=== PATIENT | female | born 1990 | race Caucasian/White ===

== ENCOUNTER → 2021-01-09 | Outpatient (CLI) | payer OTHER, SELFPAY ==
--- NOTE | 2021-01-09 | TONS_PTH ---
PATIENT: SHELLY ROWLAND LOC: [facility] U#:[id number] AGE/SX: 30/F ROOM: RE01/09/[address]: Dr. Albino Raman MD : 1990 BED: DIS: 01/09/2021 SPEC #: [id number] RECD: 01/09/21 15:06 STATUS: ARTIS MICHELLE #: [id number] LU: 01/09/21 00:[address]: Albino Raman DEPT: SURGICAL PATHOLOGY RECD BY: Ab Schreiber ENTERED: 01/10/21 08:58 SP TYPE: TONSILS OTHR DR: ARLEN Tissues: Tonsil, NOS Procedures: Surgery Specimen Level III HEADER OPERATION: Tonsillectomy and adenoidectomy PRE-OP DIAGNOSIS: Hypertrophy of tonsils, obstructive sleep apnea TISSUE SUBMITTED: Bilateral tonsils, pin on right MICROSCOPIC DIAGNOSIS Right and left tonsils, bilateral tonsillectomies: Benign lymphoid hyperplasia. Focal acute tonsillitis. Organisms consistent with actinomyces. AM:daisy 01/11/2021 MICROSCOPIC DESCRIPTION Slides are reviewed. GROSS DESCRIPTION Received is one container labeled with the patient's name and designated tonsils - pin on right are two tonsils that in aggregate weigh 10.2 gm. The right tonsil has a pin on it and measures 3.5 x 2 x 1.2 cm. The left tonsil measures 3.2 x 2.2 x 1 cm. Both tonsils are similar in appearance. The external surfaces are pink-plascencia, smooth, glistening and somewhat lobulated. Focally they are hemorrhagic, granular and bear cautery artifact. Serial cross sections through the tonsils reveal normal tonsillar architecture. Sections are submitted in two cassettes as follows: 1 - right tonsil, 2 - left tonsil. / AM:daisy 01/10/21 TC:2 CPT: 28251 x2
== END | disposition home or self-care (01) ==
PROVIDERS: Visit Provider Otolaryngology
DX: G47.33 Obstructive sleep apnea (adult) (pediatric) (principal); J35.1 Hypertrophy of tonsils
CPT/HCPCS: 88304

== ENCOUNTER 2024-01-10 12:34 | Inpatient (IN) | payer BC, SELFPAY ==
[2024-01-10] VITALS (36 sets, daily range): BP systolic 103–141; BP diastolic 53–79; PULSE 66–94; RESP 15–16; TEMP 36.4–37.7; O2SAT 87–100; BMI 33.2
--- NOTE | 2024-01-10 | PLAC_PTH ---
PATIENT: SHELLY ROWLAND LOC: [facility] U#:[id number] AGE/SX: 33/F ROOM: WP007 RE01/10/[address]: Dr. Veda Horne MD : 1990 BED: 1 DIS: 01/12/2024 SPEC #: [id number] RECD: 01/10/24 20:45 STATUS: ARTIS REZuri #: [id number] LU: 01/10/24 00:[address]: Veda Horne DEPT: SURGICAL PATHOLOGY RECD BY: Ernesto Shea ENTERED: 01/12/24 07:23 SP TYPE: PLACENTA OTHR DR: Dr. Griffin Nick MD Tissues: Placenta, NOS Procedures: Surgery Specimen Level V HEADER OPERATION: Vaginal delivery PRE-OP DIAGNOSIS: Placenta anomaly TISSUE SUBMITTED: Placenta MICROSCOPIC DIAGNOSIS Placenta: Placental disc - third trimester placenta with a succenturiate lobe (500 gm). - Focal area of infarction and calcification, succenturiate lobe (1.0 cm in greatest dimension). - Focal area of villous congestion. Membranes - no pathologic diagnosis. Umbilical cord - three blood vessels and no pathologic diagnosis. SJ: 01/14/2024 MICROSCOPIC DESCRIPTION Slides are reviewed. GROSS DESCRIPTION SPECIMEN: PLACENTA / CLINICAL INFORMATION: A. Weight: 3.255 kg B. Gestational Age: 39 weeks C. Sex: Male PLACENTAL WEIGHT (POST FIXATION): 500 gm PLACENTAL DIMENSIONS: Main lobe of placenta measures 19.0 x 17.0 x 3.0 cm. Succenturiate lobe measures 11.0 x 8.0 x 2.0cm. PLACENTAL SHAPE: Usual ovoid with a succenturiate lobe. PLACENTAL WEIGHT FOR GESTATIONAL AGE: Within 10-99th percentile MEMBRANES - Present A. Insertion: Marginal B. Site of rupture from edge: 6.0 cm from edge of placental disc C. Color of membrane: Plascencia-landers D. Abnormalities: None UMBILICAL CORD - Present A. Color: Plascencia-landers B. Insertion: Paracentral C. Length: 37.0 cm D. Diameter: 1.2 cm E. Number of vessels: Three F. Abnormalities: A false knot is noted. PLACENTAL DISC - Present A. Color of surface: Plascencia-landers B. surface abnormalities: None C. Maternal cotyledons: Intact with minimal tears D. Attached retro placental clot: No clot E. Cut surface: Dark red and spongy F. Lesions: Sections of succenturiate lobe reveal a plascencia indurated lesion measuring 1.0cm in greatest dimension. G. Separate clot: Absent SECTIONS SUBMITTED: 6 cassettes 1. Membrane roll 2. Cord, maternal end and area of false knot 3. Cord, end and succenturiate lobe with plascencia indurated lesion 4. Placental disc, and maternal surfaces 5. Placental disc, and maternal surfaces 6. Placental disc, and maternal surfaces SJ/mr 01/13/2024TC:5 CPT: 79516
[2024-01-10] MEDS: fentaNYL-bupivacaine (epidural) 100 ML BAG EPIDURAL (13:00)
[2024-01-10] MEDS: Lactated Ringers 1,000 ML 999 ML IV (13:00)
[2024-01-10 13:46] LABS: Syphilis Antibodies Non-reactive
[2024-01-10 13:48] LABS: Absolute Lymphocyte Count 2.82 X10^3/uL (0.83-4.51); Absolute Neutrophil Count 10.7 X10^3/uL (2.0-7.7); Basophil# 0.12 X10^3/uL; Basophil% 0.8 % (0-1); Eosinophil# 0.25 X10^3/uL; Eosinophils% 1.7 % (0-5); Hematocrit 36.7 % (37-47); Hemoglobin 12.6 g/dL (12.0-15.0); Lymphocyte # 2.82 X10^3/ul (0.83-4.51); Lymphocyte % 18.7 % (19-41); Mean Corp Hgb Conc 34.3 g/dL (32-36); Mean Corpuscular Hgb 29.7 pg (27.0-32.0); Mean Corpuscular Volume 86.6 fL (81-99); Mean Platelet Vol. 11.8 fl (6.2-12.0); Monocyte# 0.86 X10^3/uL; Monocyte% 5.7 % (0-10); NRBC Flagged by Analyzer 0 % (0-5); Neutrophil # 10.65 X10^3/uL (2.7-7.7); Neutrophil % 70.4 % (47-70); Platelet Count 174 K/mm3 (150-450); RBC Distribution Width CV 12.8 % (11.6-14.6); RBC Distribution Width SD 39.6 fl (35.1-43.9); Red Blood Count 4.24 M/mm3 (4.2-5.4); White Blood Count 15.1 K/mm3 (4.4-11.0)
[2024-01-10] MEDS: Lactated Ringers 1,000 ML 150 ML IV (14:24)
[2024-01-10] MEDS: Oxytocin 15 Units/NS 250ml 15 UNITS/250 ML IV.SOLN 2 UNITS IV (17:03)
[2024-01-10] MEDS: Oxytocin 15 Units/NS 250ml 15 UNITS/250 ML IV.SOLN 334 UNITS IV (19:11)
--- NOTE | 2024-01-10 19:32 | PCM.HP.OB ---
HPI - General General Date of Admission: 01/10/24 Date of Service: 01/10/24 Chief Complaint: SROM HPI Narrative SHELLY ROWLAND, is a 33 F who presents with SROM this AM. Increasing contractions. GBS negative Maternal Data Information Final ARI: 01/13/24 Gestational age: 39+4 PFSH PFSH Home Medications ?Medication ?Instructions ?Recorded ?Last Taken ?Type aspirin 81 mg chewable tablet 1 tab PO DAILY 01/10/24 01/09/24 History vit no.95-ferrous 1 tab PO DAILY 01/10/24 01/09/24 History fumarate 28 mg-folic acid 800 mcg tablet () Allergy/AdvReac Type Severity Reaction Status Date / Time strawberry Allergy Food Verified 01/10/24 13:35 Allergy bupropion (From Wellbutrin AdvReac Other Verified 01/10/24 13:35 SR) buspirone (From BuSpar) AdvReac Other Verified 01/10/24 13:35 paroxetine (From Paxil) AdvReac Other Verified 01/10/24 13:35 Social History Smoking Status: Never smoker History 1 Elective abortions Hx Para 0 Spontaneous abortions Hx # Term Pregnancies Ectopic pregnancies Hx # Pregnancies Multiple births # of living children NST FHR Rate Baby A Baseline: 140 Variability:: Moderate Accelerations:: 15 x 15 Decelerations:: None NST Reactive:: Yes FHR Category:: Category I Uterine Activity:: q 3 ROS Constitutional Constitutional: Denies fatigue, fever(s) or malaise Eyes Eyes: Denies change in vision ENT HEENT: Denies dizziness or headache(s) Cardiovascular Cardiovascular: Denies chest pain, dyspnea or lightheadedness Respiratory/Chest Respiratory/Chest: Denies cough or dyspnea Gastrointestinal Gastrointestinal: Denies change in bowel habits Genitourinary Genitourinary: Denies burning urination or genital lesions Integumentary Integumentary: Denies rash Neurologic Neurologic: Denies confusion, dizziness, headache(s), numbness or weakness Vital Signs Vital Signs Vital Signs: 01/10/24 12:11 01/10/24 12:11 01/10/24 12:11 Temperature Temperature Source Pulse Rate 75 Respiratory Rate Blood Pressure 125/79 H BP Systolic 125 BP Diastolic 79 Pulse Ox 98 07/06/24 12:11 01/10/24 12:11 01/10/24 12:11 Temperature Temperature Source Tympanic Pulse Rate Respiratory Rate 15 Blood Pressure BP Systolic BP Diastolic Pulse Ox 99 01/10/24 12:11 01/10/24 13:03 01/10/24 13:03 Temperature 97.5 F L Temperature Source Pulse Rate 70 Respiratory Rate Blood Pressure 122/70 H BP Systolic 122 BP Diastolic 70 Pulse Ox 01/10/24 13:04 01/10/24 13:04 01/10/24 14:37 Temperature Temperature Source Pulse Rate 73 Respiratory Rate 16 Blood Pressure BP Systolic BP Diastolic Pulse Ox 94 01/10/24 14:40 01/10/24 14:40 01/10/24 14:40 Temperature Temperature Source Pulse Rate 72 Respiratory Rate Blood Pressure 127/76 H BP Systolic 127 BP Diastolic 76 Pulse Ox 99 01/10/24 14:42 01/10/24 14:45 01/10/24 14:45 Temperature Temperature Source Pulse Rate 69 Respiratory Rate 16 Blood Pressure BP Systolic BP Diastolic Pulse Ox 99 01/10/24 14:45 01/10/24 14:47 01/10/24 14:47 Temperature Temperature Source Pulse Rate 73 Respiratory Rate 16 Blood Pressure 125/70 H BP Systolic 125 BP Diastolic 70 Pulse Ox 01/10/24 14:50 01/10/24 14:50 01/10/24 14:54 Temperature Temperature Source Pulse Rate 71 Respiratory Rate Blood Pressure 131/66 H BP Systolic 131 BP Diastolic 66 Pulse Ox 100 01/10/24 14:54 01/10/24 14:55 01/10/24 14:55 Temperature Temperature Source Pulse Rate 78 76 Respiratory Rate Blood Pressure BP Systolic BP Diastolic Pulse Ox 99 01/10/24 14:59 01/10/24 14:59 01/10/24 15:00 Temperature Temperature Source Pulse Rate 74 78 Respiratory Rate Blood Pressure 124/62 H BP Systolic 124 BP Diastolic 62 Pulse Ox 01/10/24 15:00 01/10/24 15:04 01/10/24 15:04 Temperature Temperature Source Pulse Rate 76 Respiratory Rate Blood Pressure BP Systolic BP Diastolic Pulse Ox 97 87 01/10/24 15:05 01/10/24 15:05 01/10/24 15:05 Temperature Temperature Source Pulse Rate 82 Respiratory Rate Blood Pressure 120/64 BP Systolic 120 BP Diastolic 64 Pulse Ox 95 01/10/24 15:09 01/10/24 15:09 01/10/24 15:09 Temperature Temperature Source Pulse Rate 76 Respiratory Rate Blood Pressure 122/60 H BP Systolic 122 BP Diastolic 60 Pulse Ox 89 01/10/24 15:09 01/10/24 15:10 01/10/24 15:10 Temperature Temperature Source Pulse Rate 81 Respiratory Rate 16 Blood Pressure BP Systolic BP Diastolic Pulse Ox 94 01/10/24 15:15 01/10/24 15:15 01/10/24 15:20 Temperature Temperature Source Pulse Rate 79 76 Respiratory Rate Blood Pressure BP Systolic BP Diastolic Pulse Ox 100 01/10/24 15:20 01/10/24 15:40 01/10/24 15:40 Temperature Temperature Source Pulse Rate 70 Respiratory Rate Blood Pressure 106/56 L BP Systolic 106 BP Diastolic 56 Pulse Ox 100 01/10/24 16:11 01/10/24 16:11 01/10/24 16:40 Temperature Temperature Source Pulse Rate 73 Respiratory Rate Blood Pressure 117/57 L 108/58 L BP Systolic 117 108 BP Diastolic 57 58 Pulse Ox 01/10/24 16:40 01/10/24 17:04 01/10/24 17:04 Temperature Temperature Source Pulse Rate 77 73 Respiratory Rate Blood Pressure 107/55 L BP Systolic 107 BP Diastolic 55 Pulse Ox 01/10/24 17:10 01/10/24 17:10 01/10/24 17:25 Temperature Temperature Source Pulse Rate 75 Respiratory Rate Blood Pressure 103/53 L 112/60 BP Systolic 103 112 BP Diastolic 53 60 Pulse Ox 01/10/24 17:25 01/10/24 17:40 01/10/24 17:40 Temperature Temperature Source Pulse Rate 66 69 Respiratory Rate Blood Pressure 116/65 BP Systolic 116 BP Diastolic 65 Pulse Ox 01/10/24 18:10 01/10/24 18:10 01/10/24 18:40 Temperature Temperature Source Pulse Rate 78 Respiratory Rate Blood Pressure 113/61 119/73 BP Systolic 113 119 BP Diastolic 61 73 Pulse Ox 01/10/24 18:40 01/10/24 19:16 01/10/24 19:16 Temperature Temperature Source Pulse Rate 82 94 Respiratory Rate Blood Pressure 124/59 H BP Systolic 124 BP Diastolic 59 Pulse Ox 01/10/24 19:29 01/10/24 19:29 Temperature Temperature Source Pulse Rate 90 Respiratory Rate Blood Pressure 118/68 BP Systolic 118 BP Diastolic 68 Pulse Ox Weight Weight: 93.44 kg Body Mass Index (BMI) 33.2 Physical Exam Const alert and no apparent distress General Appearance: cooperative HEENT normocephalic Resp normal respiratory effort GI soft to palpation GI Narrative: gravid, nontender, appropriate for gestational age Extremity no calf tenderness General Extremity: edema Skin no wounds Rashes: No rashes noted Psych activity/motor behavior normal Labs Labs Labs: Blood Type O NEGATIVE Antibody Screen NEGATIVE Hct 36.7 % (37-47) L Hgb 12.6 g/dL (12.0-15.0) Syphilis Total Ab Non-reactive Assessment & Plan (1) SROM (spontaneous rupture of membranes): (2) 39 weeks gestation of : PLAN: Plan augmentation of labor. GBS negative Epidural prn
--- NOTE | 2024-01-10 19:36 | EX.PCM.OBRPT ---
Assessment & Plan (1) (spontaneous vaginal delivery): (2) 39 weeks gestation of : (3) SROM (spontaneous rupture of membranes): Maternal Data Information Final ARI: 01/13/24 Gestational age: 39+4 Vaginal Delivery Maternal Presentation Maternal Presentation: Spontaneous Rupture of Membranes Operative Information Date of Procedure: 01/10/24 Pre-Operative Diagnosis: SROM Post-Operative Diagnosis: Surgery / Procedure Performed: Spontaneous Vaginal Delivery Type of Anesthesia: Epidural Drain: Mendoza to straight drain Estimated Blood Loss: 100 cc Time of Delivery: 19:07 Findings Description of Procedure: Presented with SROM. Increased contractions frequency. Epidural placed. Pitocin augmentation with quick progressed to complete and pushed for 20 minutes delivering OA. The shoulders delivered easily. He cried upon delivery. The was placed on the maternal abdomen. The cord was clamped and cut. Cord blood was collected. The placenta delivered with gentle traction. There is an accessory lobe noted. A 1 st degree laceration was repaired with 2-0 Vicryl Rapide Presentation: Vertex and CADE Amniotic Membrane Rupture Type: Spontaneous Time of Membrane Rupture: 10 am Amniotic Fluid Description: Clear Placental Delivery Description: Spontaneous Placenta Disposition: [facility] Cord Vessel Description: 3 Vessels Cord Entanglement: None A Gender: Male (1 minute): 8 (5 minute): 9 Post Vaginal Delivery Medications Given After Delivery: IV Pitocin Episiotomy Description: None Laceration: Midline and 1st degree Complication Complications: None
[2024-01-10] MEDS: Oxytocin 15 Units/NS 250ml 15 UNITS/250 ML IV.SOLN 83 UNITS IV (19:45)
[2024-01-10 21:00] LABS: Pathology Specimen OB SEE PATHOLOGY REPORT
[2024-01-11 00:27] VITALS: BP 114/65; PULSE 86; RESP 16; TEMP 36.3; O2SAT 100
--- NOTE | 2024-01-11 01:23 | NURSING ---
Nick Thornton RN took over pt care at 0100
[2024-01-11 03:15] VITALS: BP 125/62; PULSE 81; RESP 16; TEMP 36.3
[2024-01-11] MEDS: Acetaminophen 500 MG Tablet 1000 MG PO ×3 (03:16→20:31)
[2024-01-11] MEDS: Rho(D) Immune Globulin 300 MCG (1500 Unit) Syringe IV (06:18)
[2024-01-11] MEDS: 0.9% Saline Lock 10 ML Syringe IV (06:19)
[2024-01-11 08:45] VITALS: BP 108/68; PULSE 72; RESP 16; TEMP 36.7; O2SAT 98
[2024-01-11] MEDS: Ibuprofen 600 MG Tablet PO ×3 (08:50→23:18)
--- NOTE | 2024-01-11 08:57 | PCM.PN.OB ---
Subjective Subjective Feeling good. Ambulating and voiding without difficulty. Pain controlled. Lochia moderate Objective Data Objective Data Vital Signs: Vital Signs Temp Pulse Resp BP Pulse Ox O2 Del Method 97.3 F L 81 16 125/62 H 100 Room Air 01/11/24 03:15 01/11/24 03:15 01/11/24 03:15 01/11/24 03:15 01/11/24 00:27 01/11/24 00:27 Oxygen Delivery Method Room Air Weight: 93.44 kg Body Mass Index (BMI) 33.2 Intake & Output: Intake and Output for Last 24 Hours 01/09/24 01/10/24 01/11/24 23:59 23:59 23:59 Intake Total 2151.2 / 2151.2 0 / 0 Output Total 100 / 100 1300 / 1300 Balance 2051.2 / 2051.2 -1300 / -1300 Lab / Micro Data 01/10/24 13:00 Labs: Laboratory Results - last 24 hr 01/10/24 13:00: WBC 15.1 H, RBC 4.24, Hgb 12.6, Hct 36.7 L, MCV 86.6, MCH 29.7, MCHC 34.3, RDW Std Deviation 39.6, RDW Coeff of Alondra 12.8, Plt Count 174, MPV 11.8, Immature Gran % (Auto) 2.700 H, Neut % (Auto) 70.4 H, Lymph % (Auto) 18.7 L, [place] % (Auto) 5.7, Eos % (Auto) 1.7, Baso % (Auto) 0.8, Absolute Neuts (auto) 10.7 H, Absolute Lymphs (auto) 2.82, Nucleated RBC % 0, Syphilis Total Ab Non-reactive, Blood Type O NEGATIVE, Antibody Screen NEGATIVE 01/11/24 00:20: Screen NEGATIVE, Baby's Blood Type A POSITIVE, Baby's BELLE NEGATIVE Physical Exam Const alert and no apparent distress Narrative: Fundus firm, below umbilicus. Assessment & Plan (1) (spontaneous vaginal delivery):
[2024-01-11 12:24] VITALS: BP 113/77; PULSE 68; RESP 16; TEMP 36.3; O2SAT 99
[2024-01-11 16:00] VITALS: BP 112/68; PULSE 72; RESP 14; TEMP 36.6; O2SAT 98
[2024-01-11 20:20] VITALS: BP 121/73; PULSE 66; RESP 16; TEMP 37.5; O2SAT 98
[2024-01-11] MEDS: Senna/Docusate Sodium 1 Tablet PO (20:31)
[2024-01-12 02:45] VITALS: BP 117/68; PULSE 62; RESP 16; TEMP 37.3; O2SAT 98
[2024-01-12] MEDS: Acetaminophen 500 MG Tablet 1000 MG PO ×2 (02:57→11:14)
--- NOTE | 2024-01-12 06:52 | PCM.PN.OB ---
Subjective Subjective Doing well. Breast feeding without difficulty. Mild RUIZ but not a spinal RUIZ. Minimal lochia Objective Data Objective Data Vital Signs: Vital Signs Temp Pulse Resp BP Pulse Ox O2 Del Method 99.1 F 62 16 117/68 98 Room Air 01/12/24 02:45 01/12/24 02:45 01/12/24 02:45 01/12/24 02:45 01/12/24 02:45 01/12/24 02:45 Oxygen Delivery Method Room Air Weight: 93.44 kg Body Mass Index (BMI) 33.2 Intake & Output: Intake and Output for Last 24 Hours 01/10/24 01/11/24 01/12/24 23:59 23:59 23:59 Intake Total 2151.2 / 2151.2 0 / 0 Output Total 100 / 100 1300 / 1300 Balance 2051.2 / 2051.2 -1300 / -1300 Lab / Micro Data 01/10/24 13:00 Physical Exam Const alert and no apparent distress Narrative: Fundus firm, below umbilicus. Assessment & Plan (1) (spontaneous vaginal delivery): PLAN: Plan Discharge home.
--- NOTE | 2024-01-12 07:02 | PCM.DC.SUM ---
Providers Date of Admission: 01/10/24 Date of Discharge: 01/12/24 Primary Care Physician: Dr. Griffin Nick MD Reason For Visit: VAGINAL DELIVERY Diagnosis Discharge Diagnosis (1) (spontaneous vaginal delivery): Status: Acute Code(s): O80 - Encounter for full-term uncomplicated delivery Plan Discharge home. Medications at Discharge Home Medications aspirin 81 mg chewable tablet 1 tab PO DAILY 01/10/24 vit no.95-ferrous fumarate 28 mg-folic acid 800 mcg tablet () 1 tab PO DAILY 01/10/24 Hospital Course Operations None Procedures None Summary of Care Provided Minutes Spent on Discharge: 22 Hospital Course: Presented with SROM. Progressed quickly to complete. without difficulty. Uncomplicated course. Breast feeding on discharge Weight / BMI Weight Weight: 93.44 kg Body Mass Index (BMI) 33.2 ABG / Lab / Microbiology Data 01/10/24 13:00 D/C Instructions May resume sexual activity in: 6 weeks Please Follow Up With: Iman Carlos MD When: Follow up with our office in 1-2 and 6 weeks or as needed. [phone] Meaningful Use Info Meaningful Use Meaningful Use Diagnoses (Choose all that apply): None applicable Ischemic Stroke Statin Dosing Therapy Reference: STATIN DOSE THERAPY REFERENCE: * Patients > 75 years receive moderate or high dose statin therapy. * Patients 75 years or YOUNGER should receive HIGH intensity statin dose unless contraindicated. You will be required to document reason for non-treatment if statin daily dose does not meet guidelines. HIGH DOSE STATIN THERAPY DAILY Atorvastatin > than or = to 40 mg Rosuvastatin > than or = to 20 mg Amlodipine + Atorvastatin > than or = to 2.5/40 mg Ezetimibe + Simvastatin 10/80 mg Simvastatin 80mg Discharge Plan Admission Admit Date/Time: 01/10/24 12:34 Primary Reason for Your Visit: Labor Attending Provider: Veda Horne Primary Care Provider: Griffin Nick Discharge Orders/Prescriptions Prescriptions: Continued PNV cmb#95-ferrous fumarate-FA [] 28 mg iron- 800 mcg tablet 1 tab PO DAILY aspirin 81 mg tablet,chewable 1 tab PO DAILY Referrals / Follow Up: Griffin Nick MD [Primary Care Provider] - Disposition Disposition (needs filled in before D/C Order can be placed): Home, Self Care
[2024-01-12 07:53] VITALS: BP 107/62; PULSE 76; RESP 17; TEMP 37.2; O2SAT 98
[2024-01-12] MEDS: Ibuprofen 600 MG Tablet PO (07:59)
[2024-01-12] MEDS: Senna/Docusate Sodium 1 Tablet PO (08:00)
== END 2024-01-12 11:25 | disposition home or self-care (01) | DRG 807 ==
LOC: WPOUT 12:36 → WP 12:36
PROVIDERS: Admitting Provider Obstetrics & Gynecology; PCP Family Medicine; Referring Provider Obstetrics & Gynecology; Visit Provider Obstetrics & Gynecology
DX: O70.0 First degree perineal laceration during delivery (principal); Z37.0 Single live birth; Z79.82 Long term (current) use of aspirin; Z3A.39 39 weeks gestation of pregnancy
CPT/HCPCS: 59025; 59050; 85025; 85461; 86780; 86850; 86900; 86901; 88307; 90384; 99221; J7120; A4216; G0378; J2790; J2791

== ENCOUNTER 2024-01-15 15:08 | Day surgery (SDC) | payer BC, SELFPAY ==
[2024-01-15] MEDS: Lactated Ringers 1,000 ML 500 ML IV (15:55)
== END 2024-01-15 16:30 | disposition home or self-care (01) ==
LOC: SDC 15:12 → AC 15:16
PROVIDERS: PCP Family Medicine; Referring Provider Anesthesiology; Visit Provider Anesthesiology
PROC: 3E0R3GC Introduction of Other Therapeutic Substance into Spinal Canal, Percutaneous Approach (ICD-10-PCS; CPT 62273; principal; 2024-01-15 15:00)
DX: O89.4 Spinal and epidural anesthesia-induced headache during the puerperium (principal)
CPT/HCPCS: 62273; J7120